=== PATIENT | male | born 1965 | race Native Hawaiian/Other Pacific Islander ===

== ENCOUNTER 2018-12-12 05:27 | Observation (INO) | payer BC ==
[2018-12-12 06:17] LABS: BASO # 0.1 K/uL (0.0-0.2); BASO % 0.8 % (0.0-2.0); EOS # 0.1 K/uL (0.0-0.7); EOS % 1.8 % (0.0-4.0); HEMOGLOBIN 15.4 g/dL (12.0-18.0); LYMPH # 1.8 K/uL (1.0-4.3); LYMPH % 25.6 % (20.0-40.0); MEAN CORPUSCULAR HEMOGLOBIN 30.8 pg (27.0-31.0); MEAN CORPUSCULAR HGB CONC 33.5 g/dL (33.0-37.0); MEAN PLATELET VOLUME 9.5 fl (7.2-11.7); MONO # 0.5 K/uL (0.0-0.8); MONO % 7.6 % (0.0-10.0); NEUT # 4.5 K/uL (1.8-7.0); NEUT % 64.2 % (50.0-75.0); NRBC % 0.1 % (0.0-0.0); RBC 5.02 Mil/uL (4.40-5.90); RED CELL DISTRIBUTION WIDTH 12.8 % (11.5-14.5)
[2018-12-12 06:35] LABS: BLOOD UREA NITROGEN 17 mg/dl (9-20); CALCIUM 9.6 mg/dL (8.4-10.2); GFR NON-AFRICAN AMERICAN > 60
[2018-12-12] MEDS ORDERED: NITROGLYCERIN 2.5 MG PO STA (06:37)
[2018-12-12 06:43] LABS: PROTHROMBIN TIME 11.4 Seconds (9.8-13.1)
[2018-12-12 06:45] LABS: PARTIAL THROMBOPLASTIN TIME 34.4 Seconds (25.6-37.1)
--- NOTE | 2018-12-12 06:47 | ED PDOC ---
HPI: Chest Pain Time Seen by Provider: 12/12/18 05:45 Chief Complaint (Nursing): Chest Pain History Per: Patient History/Exam Limitations: no limitations Onset/Duration Of Symptoms: Days Current Symptoms Are (Timing): Still Present Additional Complaint(s): 53 year old with hx of chronic back pain presenting with chest pain. States that he was recently seen by Dr. Griffith in the office and had an EKG done that showed L axis deviation and was told to followup with Dr. Alejandro Jiang on Friday for an initial evaluation. He states that yesterday he was biking and started having chest pain with sweats and difficulty breathing. Today, he states he was asleep and woke up in the middle of the night with L sided chest pain and lightheadedness. He states that his chest pain is associated with sweats. Social drinker, no drugs, non-smoker. States he took 4 ASA yesterday. PMD: Dr. Griffith Past Medical History Reviewed: Historical Data, Nursing Documentation, Vital Signs Vital Signs: Last Vital Signs Temp 97.5 F L 12/12/18 05:37 Pulse 74 12/12/18 05:37 Resp 18 12/12/18 05:37 BP 172/113 H 12/12/18 05:37 Pulse Ox 99 12/12/18 05:37 - Family History Family History: States: Unknown Family Hx - Home Medications Home Medications: Ambulatory Orders Medication Instructions Recorded Gabapentin [Neurontin] 100 mg PO DAILY 12/12/18 - Allergies Allergies/Adverse Reactions: Allergies Allergy/AdvReac Type Severity Reaction Status Date / Time No Known Allergies Allergy Verified 12/12/18 05:35 GRACIELA Risk Score for UA/NSTEMI - GRACIELA Risk Score Age > 64: NO 3 or more CAD Risk Factors: NO Known CAD (Stenosis greater than 50%): NO Aspirin use in past 7 days: YES Severe Angina: NO EKG ST changes greater than 0.5mm: NO Positive Cardiac Marker: NO GRACIELA Score: 1 Risk %: 5% Curb-65 Severity Score - CURB-65 Severity Score Confusion: No Bun >19mg/dl (>7mmol/L): No Respiratory Rate greater than/equal to 30: No Systolic BP <90 or Diastolic BP less than/equal 60mmHg: No Age >64: No Curb-65 Score: 0 Percentage 30-day mortality: 0.6% Wells Criteria for PE - Wells Criteria for Pulmonary Embolism Clinical Signs and Symptoms of DVT: No P.E is #1 Diagnosis, or Equally Likely: No Heart Rate >100: No Immobilization at least 3 days;Surgery previous 4 weeks: No Previous, objectively diagnosed PE or DVT: No Hemoptysis: No Malignancy w/treatment within 6 months, or palliative: No Total Score: 0 Review of Systems ROS Statement: Except As Marked, All Systems Reviewed And Found Negative Cardiovascular: Positive for: Chest Pain Respiratory: Positive for: Shortness of Breath, SOB with Exertion Physical Exam - Reviewed Nursing Documentation Reviewed: Yes Vital Signs Reviewed: Yes - Physical Exam Appears: Positive for: Well, Non-toxic, No Acute Distress Head Exam: Positive for: ATRAUMATIC, NORMAL INSPECTION, NORMOCEPHALIC Skin: Positive for: Normal Color, Warm, DRY Eye Exam: Positive for: EOMI, Normal appearance, PERRL ENT: Positive for: Normal ENT Inspection Neck: Positive for: Normal, Painless ROM Cardiovascular/Chest: Positive for: Regular Rate, Rhythm Respiratory: Positive for: CNT, Normal Breath Sounds Gastrointestinal/Abdominal: Positive for: Normal Exam, Soft Back: Positive for: Normal Inspection Extremity: Positive for: Normal ROM Neurological/Psych: Positive for: Awake, Alert, Normal Tone - Laboratory Results Result Diagrams: 12/12/18 06:10 12/12/18 06:10 Lab Results: PT 11.4 Seconds (9.8-13.1) 12/12/18 06:10 INR 1.0 12/12/18 06:10 - ECG ECG: Positive for: Interpreted By Me, Viewed By Me ECG Rhythm: Positive for: Normal QRS, Normal ST Segment, Sinus Rhythm. Negative for: ST/T Changes Interpretation Of Abn EKG: L axis deviation O2 Sat by Pulse Oximetry: 99 Pulse Ox Interpretation: Normal Medical Decision Making Medical Decision MakinAM Patient presenting with chest pain --Concerning symptoms are chest pain associated with exertion, sweating --Will give aspirin, Nitro for BP and pain relief --Labs including troponin --Given history, will require serial troponins, EKG, continuous cardiac monitoring --Will admit to hospitalist service, Dr. Harris aware --Patient well appearing upon admission, BP improving Disposition - Clinical Impression Clinical Impression: Chest pain - Patient ED Disposition Is Patient to be Admitted: Yes Discussed With : Tc Harris - Disposition Disposition Time: 07:00 Condition: FAIR
[2018-12-12] MEDS ORDERED: Pantoprazole 40 mg EC Tab PO SCH (07:45)
--- NOTE | 2018-12-12 09:19 | RAD ---
Date of service: 12/12/2018 HISTORY: chest pain COMPARISON: No prior. TECHNIQUE: Chest PA and lateral FINDINGS: LUNGS: No active pulmonary disease. PLEURA: No significant pleural effusion identified. No pneumothorax apparent. CARDIOVASCULAR: No aortic atherosclerotic calcification present. Normal cardiac size. No pulmonary vascular congestion. OSSEOUS STRUCTURES: No significant abnormalities. VISUALIZED UPPER ABDOMEN: Normal. OTHER FINDINGS: None. IMPRESSION: No active disease.
--- NOTE | 2018-12-12 09:33 | CP.PCM.HP ---
<Isaias Nixon - Last Filed: 12/12/18 11:24> History of Present Illness - History of Present Illness History of Present Illness: CC: "I've been having chest pain on and off during the week" HPI: 53 y/o male, with no significant medical history presented to [facility] early this morning complaining of chest pain that woke him up out of bed. He reports he has been having exertional chest pain since Friday. It started Friday while he was working out and resolved once he stopped. Chest pain once again returned Friday while working out so he went to his PMD Dr. Griffith. As per pt, his EKG at the PMDs office showed a Left axis deviation so he was referred to general ophthalmologist Dr. Butler for further evaluation. Overnight he went to bed in state of good health but once again woke up with dull Left sternal pain. Pain is nonradiating, about 4/10. Mild diaphoresis during episodes. No ass ociation with position or respiration. No associated N/V/D/C, left arm/jaw pain, palpitations. No SOB. Denies any recent illnesses. No other complaints/concerns. ROS: 12 systems reviewed, as mentioned in HPI, otherwise negative PMD: Nacho PMHx: right radiculopathy, sciatica Meds: Gabapentin ALL: NKDA Psurghx: denies PhospHx: denies SocialHx: social ETOH consumption, denies tobacco/drug abuse FamilyHx: father with severe CVA in his 50s, mother with [place] in 60s Present on Admission - Present on Admission Any Indicators Present on Admission: No Past Patient History - Past Social History Smoking Status: Never Smoked - CARDIAC Hx Cardiac Disorders: No - PULMONARY Hx Respiratory Disorders: No - NEUROLOGICAL Hx Neurological Disorder: No - HEENT Hx HEENT Problems: No - RENAL Hx Chronic Kidney Disease: No - ENDOCRINE/METABOLIC Hx Endocrine Disorders: No - HEMATOLOGICAL/ONCOLOGICAL Hx Blood Disorders: No - INTEGUMENTARY Hx Dermatological Problems: No - MUSCULOSKELETAL/RHEUMATOLOGICAL Hx Musculoskeletal Disorders: No - GENITOURINARY/GYNECOLOGICAL Hx Genitourinary Disorders: No - PSYCHIATRIC Hx Psychophysiologic Disorder: No Meds Allergies/Adverse Reactions: Allergies Allergy/AdvReac Type Severity Reaction Status Date / Time No Known Allergies Allergy Verified 12/12/18 05:35 Physical Exam - Constitutional Appears: Well, Non-toxic, No Acute Distress - Head Exam Head Exam: ATRAUMATIC, NORMOCEPHALIC - Eye Exam Eye Exam: EOMI, Normal appearance. absent: Scleral icterus Pupil Exam: PERRL - ENT Exam ENT Exam: Mucous Membranes Moist, Normal Exam - Neck Exam Neck exam: Positive for: Full Rom, Normal Inspection. Negative for: Ly mphadenopathy - Respiratory Exam Respiratory Exam: Clear to Auscultation Bilateral, NORMAL BREATHING PATTERN. absent: Chest Wall Tenderness, Rales, Rhonchi, Wheezes, Respiratory Distress - Cardiovascular Exam Cardiovascular Exam: REGULAR RHYTHM, RRR, +S1, +S2. absent: Tachycardia, Gallop, Irregular Rhythm, JVD, Rubs, Systolic Murmur - GI/Abdominal Exam GI & Abdominal Exam: Normal Bowel Sounds, Soft. absent: Diminished Bowel Sounds, Distended, Firm, Guarding, Hernia, Hyperactive Bowel Sounds, Mass, Rigid - Extremities Exam Extremities exam: Positive for: normal capillary refill, normal inspection, pedal pulses present. Negative for: calf tenderness, pedal edema, tenderness - Neurological Exam Neurological exam: Alert, CN II-XII Intact, Normal Gait, Oriented x3, Reflexes Normal - Psychiatric Exam Psychiatric exam: Normal Affect, Normal Mood - Skin Skin Exam: Dry, Intact, Normal Color, Warm Results - Vital Signs Recent Vital Signs: Last Vital Signs Temp 97.7 F 12/12/18 08:51 Pulse 77 12/12/18 08:51 Resp 18 12/12/18 08:51 BP 157/109 H 12/12/18 08:51 Pulse Ox 95 12/12/18 08:51 - Labs Result Diagrams: 12/12/18 06:10 12/12/18 06:10 Labs: Laboratory Results - last 24 hr 12/12/18 12/12/18 12/12/18 06:10 06:10 06:10 WBC 7.0 RBC 5.02 Hgb 15.4 Hct 46.2 MCV 92.0 MCH 30.8 MCHC 33.5 RDW 12.8 Plt Count 185 MPV 9.5 Neut % (Auto) 64.2 Lymph % (Auto) 25.6 [place] % (Auto) 7.6 Eos % (Auto) 1.8 Baso % (Auto) 0.8 Neut # (Auto) 4.5 Lymph # (Auto) 1.8 [place] # (Auto) 0.5 Eos # (Auto) 0.1 Baso # (Auto) 0.1 PT 11.4 INR 1.0 APTT 34.4 Sodium 139 Potassium 4.1 Chloride 102 Carbon Dioxide 27 Anion Gap 14 BUN 17 Creatinine 1.0 Est GFR ( Amer) > 60 Est GFR (Non-Af Amer) > 60 Random Glucose 120 H Calcium 9.6 Troponin I 0.0290 Assessment & Plan - Assessment and Plan (Free Text) Assessment: 53 y/o male with no significant medical history with exertional chest pain admitted for cardiac evaluation to rule out ACS. Plan: 1) Extertional Chest Pain -EKG on presentation NSR, no LAD, normal QT, no ST-T wave changes -troponin 1/3 negative -lipid panel/TSH panel pending -SL nitro given in ED, as well as ASA 162mg -metoprolol 25mg Q12H -monitor vitlas -f/u labs, trend troponin -ECHO completed f/u results -Cardiology consult with Dr. Butler, f/u recs 2) Diet -heart healthy 3) Prophylaxis -SCDs <Tc Harris - Last Filed: 12/12/18 13:50> Results - Vital Signs Recent Vital Signs: Last Vital Signs Temp 98.4 F 12/12/18 13:00 Pulse 73 12/12/18 13:00 Resp 18 12/12/18 13:00 BP 145/98 H 12/12/18 13:00 Pulse Ox 96 12/12/18 13:00 - Labs Result Diagrams: 12/12/18 06:10 12/12/18 06:10 Labs: Laboratory Results - last 24 hr 12/12/18 12/12/18 12/12/18 06:10 06:10 06:10 WBC 7.0 RBC 5.02 Hgb 15.4 Hct 46.2 MCV 92.0 MCH 30.8 MCHC 33.5 RDW 12.8 Plt Count 185 MPV 9.5 Neut % (Auto) 64.2 Lymph % (Auto) 25.6 [place] % (Auto) 7.6 Eos % (Auto) 1.8 Baso % (Auto) 0.8 Neut # (Auto) 4.5 Lymph # (Auto) 1.8 [place] # (Auto) 0.5 Eos # (Auto) 0.1 Baso # (Auto) 0.1 PT 11.4 INR 1.0 APTT 34.4 Sodium 139 Potassium 4.1 Chloride 102 Carbon Dioxide 27 Anion Gap 14 BUN 17 Creatinine 1.0 Est GFR ( Amer) > 60 Est GFR (Non-Af Amer) > 60 Random Glucose 120 H Calcium 9.6 Troponin I 0.0290 Triglycerides Cholesterol LDL Cholesterol Direct HDL Cholesterol Free T4 12/12/18 12/12/18 12/12/18 13:00 13:00 13:00 WBC RBC Hgb Hct MCV MCH MCHC RDW Plt Count MPV Neut % (Auto) Lymph % (Auto) [place] % (Auto) Eos % (Auto) Baso % (Auto) Neut # (Auto) Lymph # (Auto) [place] # (Auto) Eos # (Auto) Baso # (Auto) PT INR APTT Sodium Potassium Chloride Carbon Dioxide Anion Gap BUN Creatinine Est GFR ( Amer) Est GFR (Non-Af Amer) Random Glucose Calcium Troponin I 1.0200 H* Triglycerides 155 H Cholesterol 194 LDL Cholesterol Direct 120 HDL Cholesterol 41 Free T4 1.01 Attending/Attestation - Attestation I have personally seen and examined this patient.: Yes I have fully participated in the care of the patient.: Yes I have reviewed all pertinent clinical information: Yes Notes (Text): 12/12/18 13:50 I saw, examined and discussed this patient with Dr Matute. I agree with the assessment and plan which represent my direct input. This is a 53 years old male who comes with localized left chest pressure type chilling pain on exertion and now at rest while in bed, associated with nausea an diaphoresis. Initial Troponin was negative, EKG showed no sign of ischemia although this patient may have a Roberto score of 1. because of the two angina event in 24 hours. We will consult Cardiology Dr butler, serial Troponin, lipid panel, TSH, EKG, ECHO to evaluate wall motion. Aspirin, SL NTG and Metoprolol. Treat elevated blood pressure. Tc Harris MD <Minnie Barber - Last Filed: 12/12/18 18:07> Results - Vital Signs Recent Vital Signs: Last Vital Signs Temp 98 F 12/12/18 15:49 Pulse 73 12/12/18 15:49 Resp 16 12/12/18 15:49 BP 133/88 12/12/18 15:49 Pulse Ox 95 12/12/18 15:49 - Labs Result Diagrams: 12/12/18 06:10 12/12/18 06:10 Labs: Laboratory Results - last 24 hr 12/12/18 12/12/18 12/12/18 06:10 06:10 06:10 WBC 7.0 RBC 5.02 Hgb 15.4 Hct 46.2 MCV 92.0 MCH 30.8 MCHC 33.5 RDW 12.8 Plt Count 185 MPV 9.5 Neut % (Auto) 64.2 Lymph % (Auto) 25.6 [place] % (Auto) 7.6 Eos % (Auto) 1.8 Baso % (Auto) 0.8 Neut # (Auto) 4.5 Lymph # (Auto) 1.8 [place] # (Auto) 0.5 Eos # (Auto) 0.1 Baso # (Auto) 0.1 PT 11.4 INR 1.0 APTT 34.4 Sodium 139 Potassium 4.1 Chloride 102 Carbon Dioxide 27 Anion Gap 14 BUN 17 Creatinine 1.0 Est GFR ( Amer) > 60 Est GFR (Non-Af Amer) > 60 Random Glucose 120 H Calcium 9.6 Troponin I 0.0290 Triglycerides Cholesterol LDL Cholesterol Direct HDL Cholesterol Free T4 12/12/18 12/12/18 12/12/18 13:00 13:00 13:00 WBC RBC Hgb Hct MCV MCH MCHC RDW Plt Count MPV Neut % (Auto) Lymph % (Auto) [place] % (Auto) Eos % (Auto) Baso % (Auto) Neut # (Auto) Lymph # (Auto) [place] # (Auto) Eos # (Auto) Baso # (Auto) PT INR APTT Sodium Potassium Chloride Carbon Dioxide Anion Gap BUN Creatinine Est GFR ( Amer) Est GFR (Non-Af Amer) Random Glucose Calcium Troponin I 1.0200 H* Triglycerides 155 H Cholesterol 194 LDL Cholesterol Direct 120 HDL Cholesterol 41 Free T4 1.01 Attending/Attestation - Attestation Notes (Text): 12/12/18 18:05 Patient cardiac enzymes elevated with ischemic changes in inferolateral leads. plavix loaded lovenox full dose initiated discussed with Dr. Butler, cardiac cath for Friday
--- NOTE | 2018-12-12 12:42 | CP.PCM.CON ---
History of Present Illness - History of Present Illness History of Present Illness: 53 year old male admitted with exertional chest pain. PMH borderline Htn and elevated Glucose. Initial EKG LVH by voltage no acute changes, Troponin I negative. Normal LVEF by echo, no wma. Resting comfortably. Past Patient History - Past Social History Smoking Status: Never Smoked - CARDIAC Hx Cardiac Disorders: No - PULMONARY Hx Respiratory Disorders: No - NEUROLOGICAL Hx Neurological Disorder: No - HEENT Hx HEENT Problems: No - RENAL Hx Chronic Kidney Disease: No - ENDOCRINE/METABOLIC Hx Endocrine Disorders: No - HEMATOLOGICAL/ONCOLOGICAL Hx Blood Disorders: No - INTEGUMENTARY Hx Dermatological Problems: No - MUSCULOSKELETAL/RHEUMATOLOGICAL Hx Musculoskeletal Disorders: No - GENITOURINARY/GYNECOLOGICAL Hx Genitourinary Disorders: No - PSYCHIATRIC Hx Psychophysiologic Disorder: No Meds Allergies/Adverse Reactions: Allergies Allergy/AdvReac Type Severity Reaction Status Date / Time No Known Allergies Allergy Verified 12/12/18 05:35 - Medications Medications: Current Medications Aspirin (Ecotrin) 81 mg PO DAILY [facility] Last Admin: 12/12/18 10:50 Dose: 81 mg Metoprolol Tartrate (Lopressor) 25 mg PO Q12 [facility] Last Admin: 12/12/18 10:50 Dose: 25 mg Nitroglycerin (Nitrostat Sl Tab) 0.4 mg SL Q5M PRN PRN Reason: Other Pantoprazole Sodium (Protonix Ec Tab) 40 mg PO DAILY [facility] Last Admin: 12/12/18 10:52 Dose: 40 mg Physical Exam - Head Exam Head Exam: NORMAL INSPECTION - Respiratory Exam Respiratory Exam: Clear to Auscultation Bilateral - Cardiovascular Exam Cardiovascular Exam: REGULAR RHYTHM - GI/Abdominal Exam GI & Abdominal Exam: Normal Bowel Sounds - Extremities Exam Extremities exam: Positive for: normal inspection Results - Vital Signs Recent Vital Signs: Last Vital Signs Temp 97.7 F 12/12/18 08:51 Pulse 87 12/12/18 10:50 Resp 17 12/12/18 10:05 BP 157/109 H 12/12/18 10:50 Pulse Ox 95 12/12/18 08:51 - Labs Result Diagrams: 12/12/18 06:10 12/12/18 06:10 Labs: Laboratory Results - last 24 hr 12/12/18 12/12/18 12/12/18 06:10 06:10 06:10 WBC 7.0 RBC 5.02 Hgb 15.4 Hct 46.2 MCV 92.0 MCH 30.8 MCHC 33.5 RDW 12.8 Plt Count 185 MPV 9.5 Neut % (Auto) 64.2 Lymph % (Auto) 25.6 [place] % (Auto) 7.6 Eos % (Auto) 1.8 Baso % (Auto) 0.8 Neut # (Auto) 4.5 Lymph # (Auto) 1.8 [place] # (Auto) 0.5 Eos # (Auto) 0.1 Baso # (Auto) 0.1 PT 11.4 INR 1.0 APTT 34.4 Sodium 139 Potassium 4.1 Chloride 102 Carbon Dioxide 27 Anion Gap 14 BUN 17 Creatinine 1.0 Est GFR ( Amer) > 60 Est GFR (Non-Af Amer) > 60 Random Glucose 120 H Calcium 9.6 Troponin I 0.0290 Assessment & Plan - Assessment and Plan (Free Text) Assessment: Exertional Chest pain Negative Troponin x 1 Continue Troponin x 3 Repeat EKG Stress MPI on Friday, no discharge over weekend
[2018-12-12 13:02] VITALS: PULSE 73
[2018-12-12 13:16] LABS: HDL CHOLESTEROL 41 MG/DL (30-70)
[2018-12-12 13:27] LABS: LDL CHOLESTEROL 120 mg/dL (0-129)
[2018-12-12] MEDS ORDERED: Enoxaparin 100 mg Syringe SC STA (14:08)
[2018-12-12 15:50] VITALS: BP 133/88; RESP 16; TEMP 98
[2018-12-12] MEDS ORDERED: Heparin Sodium (Porcine) 1,000 Units/ML 30ML IV ONE (19:02)
[2018-12-12] MEDS ORDERED: Heparin25000 units/250ml 1/2NS 25,000 UNITS/250 ML BAG IV ONE (19:04)
--- NOTE | 2018-12-12 19:31 | PCM.RRT ---
<Flaca Le - Last Filed: 12/12/18 19:43> ASSISTANT MANAGER/EMBALMER Nurse Assessment - Situation ASSISTANT MANAGER/EMBALMER Responder Arrival Time: 14:01 I.Reason for ASSISTANT MANAGER/EMBALMER - A) Acute Change in Patient: Subjective: ASSISTANT MANAGER/EMBALMER ASSISTANT MANAGER/EMBALMER Time: 6:48pm ASSISTANT MANAGER/EMBALMER Location: [facility] ASSISTANT MANAGER/EMBALMER Arrival: 6:49pm ASSISTANT MANAGER/EMBALMER Reason: Elevated BP, Diaphoresis, Dizziness 53 y/o male, with no significant medical history presented to [place] ER this AM with chest pain, reported exertional chest pain since Friday. 2nd troponin was elevated. Pt was going to the bathroom and when he came back he started to feel dizziness, diaphoretic, SOB, progressed to chest pain. O: ASSISTANT MANAGER/EMBALMER Vitals: T: BP: 195/137 HR:68 [id number]% RA General: Diaphoretic HEENT: NCAT Cardiac: RRR, + S1S2 Resp: CTA Abdo: Soft nontender non distended + BS Extrem: No edema ASSISTANT MANAGER/EMBALMER intervention: EKG- ST elevations in anterolateral leads Code heart was called and initiated ASA-81mg Once Atorvastatin 80mg Once Heparin drip [address] butler airport manager was notified Dr. Ceron notified. Pt tranferred to [facility] for cardiac cath A/P: 53 y/o male, with no significant medical history ASSISTANT MANAGER/EMBALMER was called for elevated BP, Diaphoresis, Dizziness ASSISTANT MANAGER/EMBALMER Outcome: Code heart called and pt was transferred to [facility] for cardiac cath ASSISTANT MANAGER/EMBALMER vitals: BP 183/123 HR78 RR22 O2Sat 98% ASSISTANT MANAGER/EMBALMER end: 7:15pm ASSISTANT MANAGER/EMBALMER Leader: Dr. Canela and Dr. Salter ASSISTANT MANAGER/EMBALMER residents: Dr. Gutierrez, Dr. Song, Dr. Le <Minnie Barber - Last Filed: 12/13/18 09:18> ASSISTANT MANAGER/EMBALMER Nurse Assessment - Vital Signs Vital Signs: Rapid Response Vital Sign Blood Pressure 195/137 Pulse Rate 68 Respiratory Rate 22 Oxygen Saturation 98 - Vital Signs at end of ASSISTANT MANAGER/EMBALMER Vital Signs at end of ASSISTANT MANAGER/EMBALMER: Rapid Response End Vital Sign Blood Pressure 183/123 Pulse Rate 78 Respiratory Rate 22 O2 Sat by Pulse Oximetry 98 Attending/Attestation - Attestation I have personally seen and examined this patient.: Yes I have fully participated in the care of the patient.: Yes I have reviewed all pertinent clinical information, including history, physical exam and plan: Yes Notes (Text): 12/13/18 09:14 agree with findings and plan as above. CODE HEART called, discussed with Drs. Zayas and Gera. HD stable at this time NAD.
[2018-12-12 19:36] VITALS: O2SAT 99
[2018-12-12] MEDS ORDERED: Heparin 25,000units in D5W 25,000 UNITS/250 ML BAG IV SCH (19:45)
--- NOTE | 2018-12-12 20:59 | CARD ---
APPROVED REPORT Date of service: 12/12/2018 EXAM: Two-dimensional and M-mode echocardiogram with Doppler and color Doppler. Other Information Quality : AverageRhythm : NSR INDICATION Chest Pain 2D DIMENSIONS IVSd1.17 (0.7-1.1cm)LVDd4.56 (3.9-5.9cm) LVOT Diameter2.09 (1.8-2.4cm)PWd0.92 (0.7-1.1cm) IVSs1.57 (0.8-1.2cm)LVDs2.76 (2.5-4.0cm) FS (%) 39.4 %PWs1.76 (0.8-1.2cm) M-Mode DIMENSIONS Left Atrium (MM)3.70 (2.5-4.0cm)Aortic Root3.14 (2.2-3.7cm) Aortic Valve AoV Peak Pfouxkxu22.9cm/sAoV VTI16.6cmAO Peak GR.3mmHg LVOT Peak Xssqmfkm81.3cm/sLVOT VTI18.44cmAO Mean GR.2mmHg VARINDER (VMAX)1.39rk7WLX (VTI)1.87cm2 Mitral Valve MV E Ldmnmvud99.9cm/sMV E Peak Gr.17mmHgMV DECEL [id number] MV A Bacsqwhh47.2cm/sMV WZN72waU/A ratio0.8 MVA (PHT)3.24cm2 TDI Lateral E' Peak V10.02cm/sMedial E' Peak V6.11cm/sE/Lateral E'5.7 E/Medial E'9.3 Pulmonary Valve RVOT VTI15.1cm Tricuspid Valve RAP [id number] LEFT VENTRICLE The left ventricle is normal size. There is normal left ventricular wall thickness. The left ventricular systolic function is normal. The estimated ejection fraction is 55-60% No regional wall motion abnormalities noted.. Transmitral Doppler flow pattern is Grade I-abnormal relaxation pattern. No left ventricle thrombus noted on this study. There is no ventricular septal defect visualized. There is no left ventricular aneurysm. There is no mass noted in the left ventricle. RIGHT VENTRICLE The right ventricle is normal size. There is normal right ventricular wall thickness. The right ventricular systolic function is normal. ATRIA The left atrium size is normal. The right atrium size is normal. The interatrial septum is intact with no evidence for an atrial septal defect. AORTIC VALVE The aortic valve is normal in structure. No aortic regurgitation is present. There is no aortic valvular stenosis. There is no aortic valvular vegetation. MITRAL VALVE The mitral valve is normal in structure. There is no evidence of mitral valve prolapse. There is no mitral valve stenosis. There is mild mitral valve regurgitation noted. TRICUSPID VALVE The tricuspid valve is normal in structure. There is trivial tricuspid valve regurgitation noted. RVSP is calculated at < 20 mm Hg. There is no tricuspid valve prolapse or vegetation. There is no tricuspid valve stenosis. PULMONIC VALVE The pulmonary valve is normal in structure. There is trace pulmonic valvular regurgitation. There is no pulmonic valvular stenosis. GREAT VESSELS The aortic root is normal in size. The ascending aorta is normal in size. The pulmonary artery is normal. The IVC is normal in size and collapses >50% with inspiration. PERICARDIAL EFFUSION There is no pericardial effusion. There is no pleural effusion. <Conclusion> The estimated ejection fraction is 55-60% Transmitral Doppler flow pattern is Grade I-abnormal relaxation pattern. The left atrium size is normal. There is mild mitral valve regurgitation noted. There is trivial tricuspid valve regurgitation noted. RVSP is calculated at < 20 mm Hg. The IVC is normal in size and collapses >50% with inspiration.
--- NOTE | 2018-12-13 11:41 | CP.PCM.DIS ---
<Isaias Nixon - Last Filed: 12/13/18 11:37> Provider - Provider Date of Admission: 12/12/18 05:46 Attending physician: Tc Harris Consults: 12/12/18 07:28 Cardiology Consult Stat Comment: Consulting Provider: Ernesto Boss Consulting Physician: Ernesto Boss Reason for Consult: Chest Pain Time Spent in preparation of Discharge (in minutes): 35 Diagnosis - Discharge Diagnosis (1) STEMI (ST elevation myocardial infarction) Status: Acute Hospital Course - Lab Results Lab Results: Most Recent Lab Values WBC 7.0 K/uL (4.8-10.8) 12/12/18 06:10 RBC 5.02 Mil/uL (4.40-5.90) 12/12/18 06:10 Hgb 15.4 g/dL (12.0-18.0) 12/12/18 06:10 Hct 46.2 % (35.0-51.0) 12/12/18 06:10 MCV 92.0 fl (80.0-94.0) 12/12/18 06:10 MCH 30.8 pg (27.0-31.0) 12/12/18 06:10 MCHC 33.5 g/dL (33.0-37.0) 12/12/18 06:10 RDW 12.8 % (11.5-14.5) 12/12/18 06:10 Plt Count 185 K/uL (130-400) 12/12/18 06:10 MPV 9.5 fl (7.2-11.7) 12/12/18 06:10 Neut % (Auto) 64.2 % (50.0-75.0) 12/12/18 06:10 Lymph % (Auto) 25.6 % (20.0-40.0) 12/12/18 06:10 [place] % (Auto) 7.6 % (0.0-10.0) 12/12/18 06:10 Eos % (Auto) 1.8 % (0.0-4.0) 12/12/18 06:10 Baso % (Auto) 0.8 % (0.0-2.0) 12/12/18 06:10 Neut # (Auto) 4.5 K/uL (1.8-7.0) 12/12/18 06:10 Lymph # (Auto) 1.8 K/uL (1.0-4.3) 12/12/18 06:10 [place] # (Auto) 0.5 K/uL (0.0-0.8) 12/12/18 06:10 Eos # (Auto) 0.1 K/uL (0.0-0.7) 12/12/18 06:10 Baso # (Auto) 0.1 K/uL (0.0-0.2) 12/12/18 06:10 PT 11.4 Seconds (9.8-13.1) 12/12/18 06:10 INR 1.0 12/12/18 06:10 APTT 34.4 Seconds (25.6-37.1) 12/12/18 06:10 Sodium 139 mmol/l (132-148) 12/12/18 06:10 Potassium 4.1 MMOL/L (3.6-5.0) 12/12/18 06:10 Chloride 102 mmol/L (98-107) 12/12/18 06:10 Carbon Dioxide 27 mmol/L (22-30) 12/12/18 06:10 Anion Gap 14 (10-20) 12/12/18 06:10 BUN 17 mg/dl (9-20) 12/12/18 06:10 Creatinine 1.0 mg/dl (0.8-1.5) 12/12/18 06:10 Est GFR ( Amer) > 60 12/12/18 06:10 Est GFR (Non-Af Amer) > 60 12/12/18 06:10 POC Glucose (mg/dL) 108 mg/dL (65-110) 12/12/18 18:43 Random Glucose 120 mg/dL (75-110) H 12/12/18 06:10 Hemoglobin A1c 5.8 % (4.2-6.5) 12/12/18 13:00 Calcium 9.6 mg/dL (8.4-10.2) 12/12/18 06:10 Troponin I 1.0200 ng/mL (0.00-0.120) H* 12/12/18 13:00 Triglycerides 155 mg/DL (0-149) H 12/12/18 13:00 Cholesterol 194 mg/dL (0-199) 12/12/18 13:00 LDL Cholesterol Direct 120 mg/dL (0-129) 12/12/18 13:00 HDL Cholesterol 41 MG/DL (30-70) 12/12/18 13:00 Free T4 1.01 ng/dL (0.78-2.19) 12/12/18 13:00 - Hospital Course Hospital Course: 53 y/o male, with no significant medical history, was originally admitted for evaluation of chest pain. An [employer] was called for elevated BP, Diaphoresis, Dizziness. ST segments were elevated in V5 V5 and inferior leads. Code heart was called and pt was urgently transferred to [facility] for cardiac cath. Discharge Exam - Head Exam Head Exam: ATRAUMATIC, NORMAL INSPECTION, NORMOCEPHALIC - Eye Exam Eye Exam: EOMI Pupil Exam: PERRL - ENT Exam ENT Exam: Mucous Membranes Moist - Neck Exam Neck exam: Lymphadenopathy - Respiratory Exam Respiratory Exam: Clear to PA & Lateral, NORMAL BREATHING PATTERN, UNREMARKABLE. absent: Rales, Rhonchi, Wheezes - Cardiovascular Exam Cardiovascular Exam: REGULAR RHYTHM, RRR, +S1, +S2. absent: Tachycardia, JVD, Rubs, Systolic Murmur - GI/Abdominal Exam GI & Abdominal Exam: Normal Bowel Sounds, Soft, Unremarkable - Extremities Exam Extremities exam: normal capillary refill, normal inspection, pedal pulses present - Neurological Exam Neurological exam: Alert, CN II-XII Intact, Oriented x3, Reflexes Normal - Psychiatric Exam Psychiatric exam: Depressed, Normal Affect - Skin Skin Exam: Diaphoretic Discharge Plan - Follow Up Plan Condition: SERIOUS Disposition: Transfer [facility] Additional Instructions: transferred to [facility] for further evaluation and treatment. <Minnie Barber - Last Filed: 12/13/18 11:44> Provider - Provider Date of Admission: 12/12/18 05:46 Attending physician: Tc Harris Consults: 12/12/18 07:28 Cardiology Consult Stat Comment: Consulting Provider: Ernesto Boss Consulting Physician: Ernesto Boss Reason for Consult: Chest Pain Hospital Course - Lab Results Lab Results: Most Recent Lab Values WBC 7.0 K/uL (4.8-10.8) 12/12/18 06:10 RBC 5.02 Mil/uL (4.40-5.90) 12/12/18 06:10 Hgb 15.4 g/dL (12.0-18.0) 12/12/18 06:10 Hct 46.2 % (35.0-51.0) 12/12/18 06:10 MCV 92.0 fl (80.0-94.0) 12/12/18 06:10 MCH 30.8 pg (27.0-31.0) 12/12/18 06:10 MCHC 33.5 g/dL (33.0-37.0) 12/12/18 06:10 RDW 12.8 % (11.5-14.5) 12/12/18 06:10 Plt Count 185 K/uL (130-400) 12/12/18 06:10 MPV 9.5 fl (7.2-11.7) 12/12/18 06:10 Neut % (Auto) 64.2 % (50.0-75.0) 12/12/18 06:10 Lymph % (Auto) 25.6 % (20.0-40.0) 12/12/18 06:10 [place] % (Auto) 7.6 % (0.0-10.0) 12/12/18 06:10 Eos % (Auto) 1.8 % (0.0-4.0) 12/12/18 06:10 Baso % (Auto) 0.8 % (0.0-2.0) 12/12/18 06:10 Neut # (Auto) 4.5 K/uL (1.8-7.0) 12/12/18 06:10 Lymph # (Auto) 1.8 K/uL (1.0-4.3) 12/12/18 06:10 [place] # (Auto) 0.5 K/uL (0.0-0.8) 12/12/18 06:10 Eos # (Auto) 0.1 K/uL (0.0-0.7) 12/12/18 06:10 Baso # (Auto) 0.1 K/uL (0.0-0.2) 12/12/18 06:10 PT 11.4 Seconds (9.8-13.1) 12/12/18 06:10 INR 1.0 12/12/18 06:10 APTT 34.4 Seconds (25.6-37.1) 12/12/18 06:10 Sodium 139 mmol/l (132-148) 12/12/18 06:10 Potassium 4.1 MMOL/L (3.6-5.0) 12/12/18 06:10 Chloride 102 mmol/L (98-107) 12/12/18 06:10 Carbon Dioxide 27 mmol/L (22-30) 12/12/18 06:10 Anion Gap 14 (10-20) 12/12/18 06:10 BUN 17 mg/dl (9-20) 12/12/18 06:10 Creatinine 1.0 mg/dl (0.8-1.5) 12/12/18 06:10 Est GFR ( Amer) > 60 12/12/18 06:10 Est GFR (Non-Af Amer) > 60 12/12/18 06:10 POC Glucose (mg/dL) 108 mg/dL (65-110) 12/12/18 18:43 Random Glucose 120 mg/dL (75-110) H 12/12/18 06:10 Hemoglobin A1c 5.8 % (4.2-6.5) 12/12/18 13:00 Calcium 9.6 mg/dL (8.4-10.2) 12/12/18 06:10 Troponin I 1.0200 ng/mL (0.00-0.120) H* 12/12/18 13:00 Triglycerides 155 mg/DL (0-149) H 12/12/18 13:00 Cholesterol 194 mg/dL (0-199) 12/12/18 13:00 LDL Cholesterol Direct 120 mg/dL (0-129) 12/12/18 13:00 HDL Cholesterol 41 MG/DL (30-70) 12/12/18 13:00 Free T4 1.01 ng/dL (0.78-2.19) 12/12/18 13:00 Attending/Attestation - Attestation I have personally seen and examined this patient.: Yes I have fully participated in the care of the patient.: Yes I have reviewed all pertinent clinical information, including history, physical exam and plan: Yes Notes (Text): 12/13/18 11:43 agree with findings and plan as above. discussed with Drs. Zayas and Gera. Pt to stay at [facility] post cath. 99% RCA/PDA, MISAEL. 80% pLAD to be stented in 2-[address] Zayas.
--- NOTE | 2018-12-14 08:26 | CARD ---
APPROVED REPORT Date of service: 12/12/2018 EKG Measurement Heart [id number] <Conclusion> Normal sinus rhythm with sinus arrhythmia Voltage criteria for left ventricular hypertrophy Abnormal ECG
--- NOTE | 2018-12-14 20:47 | CARD ---
APPROVED REPORT Date of service: 12/12/2018 EKG Measurement Heart [id number] <Conclusion> Normal sinus rhythm ST elevation, consider anterolateral injury or acute infarct ST elevation, consider inferior injury or acute infarct ACUTE ND / STEMI Consider right ventricular involvement in acute inferior infarct Abnormal ECG
--- NOTE | 2018-12-14 20:47 | CARD ---
APPROVED REPORT Date of service: 12/12/2018 EKG Measurement Heart [id number] <Conclusion> Sinus rhythm with frequent and consecutive premature ventricular complexes ST elevation, consider anterolateral injury or acute infarct ST elevation, consider inferior injury or acute infarct ACUTE AL / STEMI Consider right ventricular involvement in acute inferior infarct Abnormal ECG
== END 2018-12-12 19:19 | disposition short-term general hospital (02) ==
LOC: H.ER 05:27 → H.ERHOLD 05:46 → H.TEL 08:28
PROVIDERS: ADMIT Internal Medicine; ATTEND Internal Medicine
DX: I21.3 ST elevation (STEMI) myocardial infarction of unspecified site (principal); Z82.3 Family history of stroke; Z82.49 Family history of ischemic heart disease and other diseases of the circulatory system; M54.9 Dorsalgia, unspecified; G89.29 Other chronic pain; M54.10 Radiculopathy, site unspecified; M54.30 Sciatica, unspecified side; R73.9 Hyperglycemia, unspecified; Z79.899 Other long term (current) drug therapy; R03.0 Elevated blood-pressure reading, without diagnosis of hypertension
CPT/HCPCS: 36415; 71046; 80048; 80061; 82948; 83036; 84439; 84484; 85025; 85610; 85730; 93005; 93306; 96372; 96374; 99285; G0378; J1644; J1650